=== PATIENT | male | born 1975 | race Caucasian/White ===

== ENCOUNTER → 2017-06-10 | Outpatient (CLI) | payer OTHER ==
[2017-06-10 16:37] LABS: HEMATOCRIT 43.4 % (42.0-52.0); HEMOGLOBIN 14.9 g/dl (13.5-18.0); MEAN CELL VOLUME 90 fl (80.0-100.0); MEAN CORPUSCULAR HEMOGLOBIN 31 pg (27.0-31.0); MEAN CORPUSCULAR HGB CONC 34 g/dl (33.0-37.0); MEAN PLATELET VOLUME 10.3 fl (7.4-10.4); PLATELET COUNT 249 K/mm3 (130-400); RED BLOOD COUNT 4.81 M/mm3 (4.20-5.60); REDCELL DISTRIBUTION WIDTH-CV 12.3 % (11.5-14.5)
[2017-06-10 17:05] LABS: ERYTHROCYTE SEDIMENTATION RATE 9 mm/hr (0-15)
== END ==
LOC: COL.LAB 16:00
PROVIDERS: Emergency Medicine
DX: M25.552 Pain in left hip (principal)

== ENCOUNTER → 2017-08-22 | Outpatient (CLI) | payer OTHER | LOC: COL.RAD 10:20 | DX: M25.552 Pain in left hip (principal) ==

== ENCOUNTER → 2017-08-28 | Outpatient (CLI) | payer OTHER | LOC: COL.RAD 12:58 | DX: M87.852 Other osteonecrosis, left femur (principal) ==

== ENCOUNTER 2017-10-07 09:04 | Day surgery (SDC) | payer OTHER ==
[~2017-10-07] VITALS: Ht 185.4 cm; Wt 133.6 kg
[2017-10-07 09:39] VITALS: BP 154/88; PULSE 86; TEMP 97.8
[2017-10-07 16:00] VITALS: BP 150/83; PULSE 93; TEMP 97.8
[2017-10-07 16:15] VITALS: BP 131/83; PULSE 93; TEMP 97.8
[2017-10-07 16:30] VITALS: BP 144/91; PULSE 90; TEMP 97.8
[2017-10-07 16:45] VITALS: BP 136/83; PULSE 91; TEMP 97.8
== END 2017-10-07 17:45 | disposition home or self-care (01) ==
LOC: SDCO 09:04 → JCC 16:35 → SDCO 17:45
DX: M87.852 Other osteonecrosis, left femur (principal)
CPT/HCPCS: OP; C1713; J0330; J0690; J1100; J1885; J2270; J2405; J2704; J2710; J3010; J7120